=== PATIENT | female | born 1975 | race Caucasian/White ===

== ENCOUNTER 2016-07-18 14:30 | Emergency (ER) | payer OTHER | END 2016-07-18 18:30 | disposition home or self-care (01) | LOC: ER1 14:30 | DX: R21 Rash and other nonspecific skin eruption (principal); R22.43 Localized swelling, mass and lump, lower limb, bilateral; F32.9 Major depressive disorder, single episode, unspecified; F17.210 Nicotine dependence, cigarettes, uncomplicated; Z79.899 Other long term (current) drug therapy | CPT/HCPCS: 36415; 72100; 81001; 99283 ==